=== PATIENT | female | born 1950 | race Caucasian/White ===

== ENCOUNTER 2016-12-29 09:34 | Day surgery (SDC) | payer BC ==
[2016-12-29] MEDS ORDERED: PROPOFOL 10 MG/ML VIAL IV ONE (09:35)
[2016-12-29] MEDS ORDERED: LIDOCAINE 2% MDV (20MG/ML) 20ML VIAL IV ONE (09:35)
--- NOTE | 2016-12-29 13:30 | Operative Note ---
DATE OF SURGERY: 12/29/2016 OPERATION: COLONOSCOPY to the cecum. INDICATION: Prior history of diverticulitis, prior history of adenomatous polyps. Patient with previous rectosigmoid colon resection for rectovaginal fistula and colonic stenosis following a previous surgery for diverticulitis. Colonoscopy is performed at this time for fair evaluation. Clinically, the patient is doing quite well and is having regular stools without pain. ANESTHESIA: Intravenous sedation was administered by the department of anesthesiology and included Diprivan titrated to effect. PROCEDURE: Following informed consent from this alert individual including a discussion of the risks and benefits of the procedure and an opportunity for the patient to ask questions, the patient was in the left lateral decubitus position. A digital rectal examination was performed. No abnormalities were noted. Following this, the Olympus [id number] video colonoscope was inserted into the rectum without resistance. The rectal mucosa had a normal appearance with normal folds and distensibility. There was a scar noted with a healthy-appearing anastomosis in the proximal rectum. The colonoscope was then further advanced up through the bowel to the level of the cecum without much difficulty. Throughout the remainder of the bowel the mucosa appeared normal, the folds were normal, and the bowel was fairly well distensible. There was a solitary diverticulum noted. The cecum was defined by noting the appendiceal orifice and ileocecal valve. Retroflexion in the cecum was endoscopically unremarkable. From the base of the cecum, the colonoscope was then withdrawn. No additional changes were appreciated upon withdrawal. Retroflexion in the rectum was endoscopically unremarkable. The instrument was removed. The patient tolerated the procedure well and was returned to the recovery area in stable condition. IMPRESSION: 1. Solitary diverticulum noted in the descending colon. 2. Previous rectosigmoid resection with healthy-appearing anastomosis. 3. No polyps noted. RECOMMENDATIONS: The patient was advised to have recheck colonoscopy in 5 years' time for polyp surveillance. Will otherwise follow up with Dr. Blood. As always, thank you for allowing me to participate in the care of your patient. CC: Dr. Jeremi GRIFFITH
== END 2016-12-29 11:55 | disposition home or self-care (01) ==
LOC: HOP 09:34
PROVIDERS: ATTEND Internal Medicine Gastroenterology
DX: Z12.11 Encounter for screening for malignant neoplasm of colon (principal); Z86.010 Personal history of colon polyps; K57.30 Diverticulosis of large intestine without perforation or abscess without bleeding; Z87.19 Personal history of other diseases of the digestive system; M06.9 Rheumatoid arthritis, unspecified
CPT/HCPCS: 00810; G0105